=== PATIENT | male | born 1945 | race Caucasian/White ===

== ENCOUNTER → 2016-11-05 | Outpatient (CLI) | payer MEDICARE ==
[2016-11-05 18:59] LABS: ALT 32 U/L (21-72); AST 29 U/L (17-59); Alkaline Phosphatase 57 U/L (38-126); Anion Gap 11 mmol/L; Blood Urea Nitrogen 13 mg/dL (9-20); Calcium 9.7 mg/dL (8.4-10.2); Carbon Dioxide 23 mmol/L (22-30); Chloride 107 mmol/L (98-107); Cholesterol 153 mg/dL (<200); Glucose 93 mg/dL (74-99); HDL Cholesterol 56 mg/dL (40-60); Non-African American GFR(MDRD) >60 (>60 ml/min/1.73 sqM); Potassium 4.3 mmol/L (3.5-5.1); Sodium 141 mmol/L (137-145); Total Protein 7.1 g/dL (6.3-8.2); Triglycerides 122 mg/dL (<150)
[2016-11-05 19:37] LABS: Basophils # (A) 0.1 k/uL (0-0.2); Basophils % (A) 1 %; CH 31.5; CHCM 33.4; Eosinophils # (A) 0.1 k/uL (0-0.7); Eosinophils % (A) 2 %; HCT 51.2 % (39.0-53.0); HDW 2.35; HGB 16.8 gm/dL (13.0-17.5); Luc # (Auto) 0.15; Luc % (Auto) 2; Lymphocytes # (A) 1.5 k/uL (1.0-4.8); Lymphocytes % (A) 22 %; MCH 31.1 pg (25.0-35.0); MCHC 32.9 g/dL (31.0-37.0); MCV 94.6 fL (80.0-100.0); Mean Platelet Volume 7.9; Monocytes # (A) 0.5 k/uL (0-1.0); Monocytes % (A) 7 %; Neutrophils # (A) 4.2 k/uL (1.3-7.7); Neutrophils % (A) 65 %; RBC 5.41 m/uL (4.30-5.90); RDW 13.4 % (11.5-15.5); WBC 6.5 k/uL (3.8-10.6); WBC (Perox) 6.54
== END ==
LOC: MMGSC 15:05
PROVIDERS: ATTEND Family Medicine
DX: Z00.00 Encounter for general adult medical examination without abnormal findings (principal); Z12.5 Encounter for screening for malignant neoplasm of prostate
CPT/HCPCS: 84439; 80061; 80053; 84443; 85025; 36415; G0103

== ENCOUNTER 2024-10-26 03:51 | Inpatient (IN) | payer MEDICARE, OTHER ==
--- NOTE | 2024-10-26 04:14 | ED ---
Chest Pain HPI - General Chief Complaint: Chest Pain Stated Complaint: Chest pain Time Seen by Provider: 10/26/24 04:00 Source: patient Mode of arrival: ambulatory Limitations: no limitations - History of Present Illness Initial Comments: This patient is a 78-year-old man who presents to have evaluation for chest pain that he states woke him up about an hour ago. Patient states he has history of hypertension. He is not aware of history of heart disease. He states that he had heart catheterization approximately 30 years ago. Denies current smoking MD Complaint: chest pain Onset/Timin -: hour(s) Onset: awoke with symptoms Pain Location: substernal Pain Radiation: neck Severity: moderate Quality: heaviness Consistency: constant Improves With: nothing Worsens With: nothing Treatments Prior to Arrival: none - Related Data Home Medications Medication Instructions Recorded Confirmed Aspirin 81 mg PO HS 10/04/15 10/05/15 Tamsulosin [Flomax] 0.8 mg PO HS 10/04/15 10/05/15 lisinopriL [Zestril] 2.5 mg PO HS 10/04/15 10/05/15 Glucosam/Herb-Msm1/C/Adam/Bosw 1 tab PO HS 10/05/15 10/05/15 [Glucosamine-Chondroitin Tablet] Allergies Allergy/AdvReac Type Severity Reaction Status Date / Time pregabalin Allergy Unknown Verified 10/26/24 03:56 Review of Systems ROS Statement: Those systems with pertinent positive or pertinent negative responses have been documented in the HPI. ROS Other: All systems not noted in ROS Statement are negative. Constitutional: Denies: fever, chills Respiratory: Denies: cough, dyspnea Cardiovascular: Reports: chest pain. Denies: palpitations, edema, syncope Gastrointestinal: Denies: abdominal pain, nausea, vomiting Genitourinary: Denies: dysuria, hematuria Musculoskeletal: Denies: back pain Skin: Denies: rash Neurological: Denies: headache, weakness EKG Findings - EKG Results: EKG: interpreted by RADHA, sinus rhythm (Rate 68 bpm), normal axis - Blocks, Tillson, Hypertrophy, ST Abn: QRS axis and voltage: low voltage (<0.5 MV total QRS and <1.0 MV in each precordial lead) - SD, Pacemaker, Normal: Myocardial infarction: inferior SD (old age indeterminate), anterior SD (old age or indeterminate) Past Medical History Past Medical History: Hypertension, Prostate Disorder Additional Past Medical History / Comment(s): knee pain, History of Any Multi-Drug Resistant Organisms: None Reported Past Surgical History: Heart Catheterization, Orthopedic Surgery Additional Past Surgical History / Comment(s): right knee replacement, surgery right elbow, left shoulder surgery, back surgery Past Anesthesia/Blood Transfusion Reactions: No Reported Reaction Past Psychological History: No Psychological Hx Reported Smoking Status: Never smoker Past Alcohol Use History: None Reported Past Drug Use History: None Reported - Past Family History Mother Additional Family Medical History / Comment(s): heart bypass surgery General Exam Limitations: no limitations General appearance: alert, in no apparent distress Head exam: Present: atraumatic, normocephalic Eye exam: Present: normal appearance. Absent: scleral icterus, conjunctival injection ENT exam: Present: normal oropharynx Neck exam: Present: normal inspection Respiratory exam: Present: normal lung sounds bilaterally. Absent: respiratory distress, wheezes, rales, rhonchi, stridor, chest wall tenderness, accessory muscle use Cardiovascular Exam: Present: regular rate, normal rhythm, normal heart sounds. Absent: systolic murmur, diastolic murmur, rubs, gallop GI/Abdominal exam: Present: soft. Absent: distended, tenderness, guarding, rebound, rigid, mass Extremities exam: Present: normal inspection, normal capillary refill. Absent: pedal edema, calf tenderness Back exam: Present: normal inspection. Absent: CVA tenderness (R), CVA tenderness (L) Neurological exam: Present: alert Skin exam: Present: warm, dry, intact, normal color. Absent: rash Course Vital Signs 10/26/24 10/26/24 10/26/24 03:53 04:25 05:01 Temperature 97.3 F L Pulse Rate 73 61 58 L Respiratory 18 18 18 Rate Blood Pressure 147/89 122/86 131/84 O2 Sat by Pulse 99 97 97 Oximetry 10/26/24 10/26/24 10/26/24 05:05 05:10 05:15 Temperature Pulse Rate 58 L 56 L 60 Respiratory 18 18 18 Rate Blood Pressure 122/86 122/81 117/78 O2 Sat by Pulse 97 97 95 Oximetry 10/26/24 10/26/24 10/26/24 05:21 05:30 06:00 Temperature Pulse Rate 54 L 60 56 L Respiratory 18 18 18 Rate Blood Pressure 114/77 91/58 103/64 O2 Sat by Pulse 95 96 91 L Oximetry 10/26/24 06:17 Temperature Pulse Rate Respiratory Rate Blood Pressure O2 Sat by Pulse 96 Oximetry Chest Pain MDM - MDM This patient is a 78-year-old man presenting to the emergency department with pain of 1 hour duration. The patient's ECG does appear to show some ST elevat ions in the anterior leads however the patient does have fully developed Q waves. The patient's last ECG unfortunately is from 2016 so no recent available for comparison. The case discussed with cardiology and their treatment recommendations incorporated. They suspect patient will go for [employer] first thing in the morning. The patient has had some improvement but does have some residual chest pain. The patient had chest x-ray that interpreted as showing cardiomegaly. No acute infiltrate or pneumothorax. Disposition Clinical Impression: Acute coronary syndrome Disposition: ADMITTED IP TO THIS HOSP Condition: Fair Is patient prescribed a controlled substance at d/c from ED?: No
[2024-10-26] MEDS: ASPIRIN 81 MG PO STA (04:16)
[2024-10-26] MEDS: NITROGLYCERIN SL TABS 0.4 MG TAB SUBLINGUAL STA (04:17)
[2024-10-26] MEDS: MORPHINE SULFATE 4 MG/ML SYRINGE IV STA (04:17)
[2024-10-26 04:25] LABS: Basophils # (A) 0.09 10*3/uL (0.00-0.10); Basophils % (A) 1.1 %; Eosinophils # (A) 0.21 10*3/uL (0.04-0.35); Eosinophils % (A) 2.5 %; HCT 48.7 % (39.6-50.0); HGB 16.9 g/dL (13.0-17.0); Lymphocytes # (A) 2.01 10*3/uL (0.90-5.00); MCH 31.9 pg (27.0-32.0); MCHC 34.7 g/dL (32.0-37.0); MCV 92.1 fL (80.0-97.0); Mean Platelet Volume 10.1 fL (9.5-12.2); Monocytes # (A) 0.95 10*3/uL (0.20-1.00); Monocytes % (A) 11.4 %; Neutrophils # (A) 5.09 10*3/uL (1.80-7.70); Neutrophils % (A) 60.8 %; Platelet Count 214 10*3/uL (140-440); RBC 5.29 10*6/uL (4.40-5.60); RDW 12.8 % (11.5-14.5); WBC 8.37 10*3/uL (4.50-10.00)
[2024-10-26] MEDS ORDERED: HEPARIN SODIUM 1,000 UN/ML (10ML VL) IV PRN (04:27)
[2024-10-26] MEDS: ATORVASTATIN 80 MG TAB PO STA ×2 (04:31→09:10)
[2024-10-26] MEDS: HEPARIN SODIUM 1,000 UN/ML (10ML VL) IV ONE (04:33)
[2024-10-26] MEDS: HEPARIN SOD,PORK IN 0.45% NACL 25,000 UNIT in 0.45% NACL 1 250ML.BAG IV SCH (04:36)
[2024-10-26 04:42] LABS: ALT 20 U/L (4-49); AST 31 U/L (17-59); African American GFR (CKD) 64 (>60 ml/min/1.73 sqM); Albumin 4.1 g/dL (3.5-5.0); Alkaline Phosphatase 78 U/L (38-126); Anion Gap 10 mmol/L; Blood Urea Nitrogen 22 mg/dL (9-20); Calcium 9.6 mg/dL (8.4-10.2); Carbon Dioxide 24 mmol/L (22-30); Chloride 105 mmol/L (98-107); Glucose 113 mg/dL (74-99); Magnesium 1.9 mg/dL (1.6-2.3); Non-African American GFR(CKD) 55 (>60 ml/min/1.73 sqM); Potassium 4.1 mmol/L (3.5-5.1); Sodium 139 mmol/L (137-145); Total Bilirubin 0.8 mg/dL (0.2-1.3); Total Protein 6.8 g/dL (6.3-8.2)
[2024-10-26 04:50] LABS: Partial Thromboplastin Time 24.5 sec (22.0-30.0); Prothrombin Time 10.9 sec (10.0-12.5)
[2024-10-26] MEDS: NITROGLYCERIN-D5W PMX 50 MG in DEXTROSE/WATER 1 250ML.BAG IV ONE (04:54)
[2024-10-26] MEDS: METOPROLOL TARTRATE 25 MG TAB PO STA (05:00)
--- NOTE | 2024-10-26 05:31 | XR ---
EXAM: XR Chest, 1 View CLINICAL HISTORY: ITS.REASON XR Reason: chest pain TECHNIQUE: Frontal view of the chest. COMPARISON: X-ray dated 10/04/2015. FINDINGS: Lungs: Opacification of the left lung base. The lungs are mildly hypoinflated. Pleural space: Unremarkable. No pneumothorax. Heart: Unremarkable. No cardiomegaly. Mediastinum: Unremarkable. Normal mediastinal contour. Bones/joints: Degenerative changes are seen within the spine. No acute fracture. IMPRESSION: Vascular crowding versus left lower lobe pneumonia.
[2024-10-26] MEDS ORDERED: NITROGLYCERIN SL TABS 0.4 MG TAB SUBLINGUAL PRN ×2 (06:16→08:07)
[2024-10-26] MEDS ORDERED: ALPRAZolam 0.5 MG TAB PO PRN (08:07)
[2024-10-26] MEDS ORDERED: ALPRAZolam 0.25 MG TAB PO PRN (08:07)
[2024-10-26] MEDS: METOPROLOL SUCCINATE (ER) 25 MG TAB.ER.24H PO SCH (08:09)
[2024-10-26] MEDS: ASPIRIN 81 MG PO SCH (08:47)
[2024-10-26] MEDS: ASPIRIN 325 MG TAB PO STA (08:58)
[2024-10-26] MEDS: TAMSULOSIN 0.4 MG CAP.ER.24H PO SCH (09:10)
[2024-10-26] MEDS: LEVOTHYROXINE 125 MCG TAB PO SCH (09:10)
[2024-10-26] MEDS: SODIUM CHLORIDE 0.9% 1,000 ML IV SCH (09:11)
--- NOTE | 2024-10-26 10:34 | CA ---
Transthoracic Echo Report Name: Dexter Young Age: 78 Gender: M : 1945 Exam Date: 10/26/2024 08:46 Exam Location: [facility] Ht (in): 71 Wt (lb): 195 Ordering Physician: Fernanda Reyes Attending/Referring Phys: [id number], Eric Estimator Project Manager Oumou Marcos RDCS Procedure CPT: Indications: nstemi Cardiac Hx: Technical Quality: Fair Contrast 1: Total Dose (mL): Contrast 2: Total Dose (mL): MEASUREMENTS (Male / Female) Normal Values 2D ECHO LV Diastolic Diameter PLAX 5.5 cm 4.2 - 5.9 / 3.9 - 5.3 cm LV Systolic Diameter PLAX 4.2 cm IVS Diastolic Thickness 1.1 cm 0.6 - 1.0 / 0.6 - 0.9 cm LVPW Diastolic Thickness 0.9 cm 0.6 - 1.0 / 0.6 - 0.9 cm LV Relative Wall Thickness 0.4 RV Internal Dim ED PLAX 2.3 cm LA Systolic Diameter LX 3.4 cm 3.0 - 4.0 / 2.7 - 3.8 cm LV Diastolic Volume MOD BP 104.8 cm??? 67 - 155 / 56 - 104 cm??? LV Systolic Volume MOD BP 61.7 cm??? - 58 / 19 - 49 cm??? LV Ejection Fraction MOD BP 41.2 % >= 55 % LV Cardiac Index MOD BP 1221.6 cm???/min???m??? LV Diastolic Volume MOD 4C 107.8 cm??? LV Systolic Volume MOD 4C 63.4 cm??? LV Ejection Fraction MOD 4C 41.2 % LV Cardiac Index MOD 4C 1257.1 cm???/min???m??? LV Diastolic Length 4C 8.0 cm LV Systolic Length 4C 7.6 cm LV Diastolic Volume MOD 2C 100.2 cm??? LV Systolic Volume MOD 2C 57.3 cm??? LV Ejection Fraction MOD 2C 42.9 % LV Cardiac Index MOD 2C 1216.5 cm???/min???m??? LV Diastolic Length 2C 8.1 cm LV Systolic Length 2C 7.2 cm LA Volume 61.2 cm??? 18 - 58 / 22 - 52 cm??? LA Volume Index 28.9 cm???/m??? 16 - 28 cm???/m??? M-MODE Aortic Root Diameter MM 3.2 cm LA Systolic Diameter MM 3.9 cm LA Ao Ratio MM 1.2 AV Cusp Separation MM 1.9 cm DOPPLER AI Peak Velocity 199.3 cm/s AI Peak Gradient 15.9 mmHg AI Pressure Half Time 606.1 ms MV Area PHT 2.7 cm??? Mitral E Point Velocity 50.2 cm/s Mitral A Point Velocity 91.9 cm/s Mitral E to A Ratio 0.5 MV Deceleration Time 284.4 ms TR Peak Velocity 202.9 cm/s TR Peak Gradient 16.5 mmHg FINDINGS Left Ventricle Left ventricular ejection fraction is estimated at 40 %. Mildly increased septal wall thickness. Mildly increased left ventricular systolic volume. Hypokinetic septum. There is hypokinesia of the mid to distal septum and adjoining anteroapical wall Right Ventricle Normal right ventricular size and function. Right ventricular systolic pressure within normal limits. Right Atrium Mild right atrial dilatation. Left Atrium Mildly increased left atrial volume. Mildly increased left atrial area. Mitral Valve Structurally normal mitral valve. Mild mitral regurgitation. No mitral stenosis. Aortic Valve Aortic valve not well visualized. No aortic stenosis. Trace aortic regurgitation. Tricuspid Valve Structurally normal tricuspid valve. Mild tricuspid regurgitation. No tricuspid stenosis. Pulmonic Valve Structurally normal pulmonic valve. Trace pulmonic regurgitation. No pulmonic stenosis. Pericardium No pericardial or pleural effusion. Aorta Normal size aortic root and proximal ascending aorta. CONCLUSIONS Normal LV size with hypokinesia of the mid to distal septum and adjoining anteroapical wall ejection fraction of about 40%. Mild mitral and tricuspid regurgitation no pulmonary hypertension no pericardial effusion Previewed by: Dr. Kelly Cortes MD (Electronically Signed) Final Date: 26 Oct 2024 10:33
[2024-10-26] MEDS: HEPARIN SODIUM,PORCINE (1 ML) 2,500 UNIT in SODIUM CHLORIDE 0.9% 250 ML IRRIGATION ONE (11:02)
[2024-10-26] MEDS: MIDAZOLAM 2 MG/2 ML VIAL IVP ONE (11:02)
[2024-10-26] MEDS: LIDOCAINE 1% INJ 10MG/ML (20 ML MDV) SQ ONE (11:02)
[2024-10-26] MEDS: HEPARIN SODIUM (1,000 UNIT/ML) 1,000 UNIT in SODIUM CHLORIDE 0.9% 1,000 ML IRRIGATION ONE (11:02)
[2024-10-26] MEDS: IV FLUID CONTINUATION 1,000 ML IV ONE (11:02)
[2024-10-26] MEDS: VERAPAMIL SYRINGE (5 MG/10 ML) INTRAARTER ONE (11:12)
[2024-10-26] MEDS: HEPARIN SODIUM 1,000 UN/ML (10ML VL) IVP ONE (11:14)
[2024-10-26] MEDS: PHENYLEPHRINE-0.9% NACL SYG 1,000 MCG/10 ML SYRINGE IVP ONE (11:16)
[2024-10-26] MEDS: NOREPINEPHRINE 4 MG in SODIUM CHLORIDE 0.9% 250 ML IV ONE (11:27)
[2024-10-26] MEDS: TICAGRELOR 90 MG TAB PO ONE (11:30)
[2024-10-26] MEDS: IOPAMIDOL-370 100ML BTL INJ ONE ×2 (11:32→12:07)
[2024-10-26] MEDS: TIROFIBAN 12.5MG-250ML NS 250 ML IV ONE (11:37)
[2024-10-26] MEDS: niCARdipine Syringe (1,000 mcg/10 mL) INTRAARTER ONE (11:48)
--- NOTE | 2024-10-26 11:52 | P.CRDCN ---
History of Present Illness Consult date: 10/26/24 Reason for Consult (text): Acute coronary syndrome History of present illness: This is a 78-year-old male follows with the [facility] in [place] for cardiology. He patient gives history that he had previously been seen by Dr. Cortes and had a cardiac cath done 30 years ago and was told he had a partial blockage in 1 artery. He has a past medical history of hypertension, thyroid cancer stage IV, borderline diabetes, BPH. We have been asked to evaluate the patient for acute coronary syndrome. Patient gives history that he was recently started on metoprolol after his forest officer at [facility] did a EKG. He has not had a stress test or cardiac cath done by [facility]. Patient came into the hospital due to shortness of breath specially when he is lifting something or going up a few stairs for the past 2 to 3 weeks. He denies true chest pain but has tightness in his chest. He also has some nausea. He complains of some headache now secondary to nitrog lycerin. Usually, patient is able to do 2 flights of stairs without getting short of breath. He also mowed the lawn yesterday and the day before was able to ride his bike for 11 miles. Patient has been started on heparin drip and nitroglycerin drip. Blood pressure 92/58, heart rate 61, pulse ox 98% on 2 L nasal cannula. Patient is seen today in the emergency center waiting for a bed on the cardiac stepdown unit. Dr. Hassan discussed in detail the findings and recommendations for cardiac catheterization with the patient, his and other family members. Patient is agreeable to move forward with this today. -EKG: Q wave in the anterior precordial leads subtle changes with old anterior WA -Chest x-ray: Vascular crowding versus left lower lobe pneumonia. -Laboratory studies: CBC and D-dimer normal. BUN 22 creatinine 1.25, blood sugar 113. Troponin 0.012 and 0.506. -Home cardiac medications: Aspirin 81 mg daily, metoprolol succinate 12.5 mg daily, also on fish oil and levothyroxine. -Echocardiogram on this admission reveals EF 40%, mild mitral and tricuspid regurgitation. No pulmonary hypertension. No pericardial effusion. Review Of Systems: At the time of my exam: CONSTITUTIONAL: Denies fever or chills. HEENT: Denies blurred vision, vision changes, or eye pain. Denies hemoptysis CARDIOVASCULAR: Denies chest pain. Denies orthopnea. Denies PND. Denies palpitations RESPIRATORY: Denies shortness of breath. GASTROINTESTINAL: Denies abdominal pain. Denies nausea or vomiting. HEMATOLOGIC: Denies bleeding disorders. GENITOURINARY: Denies any blood in urine. SKIN: Denies puritis. Denies rash. Physical examination: Gen: This is a 78-year-old male in no acute distress. VS: reviewed HEENT: Head is atraumatic, normocephalic. Pupils equal, round. Sclerae is anicteric. NECK: Supple. No JVD. LUNGS: Clear to auscultation. No wheezes or rhonchi. No intercostal retra ctions. HEART: Regular rate and rhythm. No murmur. ABDOMEN: Soft No tenderness. EXTREMITIES: No pedal edema. No calf tenderness. NEUROLOGICAL: Patient is awake, alert and oriented x3. Assessment: Postinfarction angina NSTEMI Cardiomyopathy, new with EF 40%, most likely ischemic History of coronary artery disease Hypertension Borderline diabetes History of thyroid cancer BPH Plan: Resume patient's home cardiac medications Continue heparin drip Continue nitroglycerin drip Start patient on a atorvastatin 80 mg daily Patient will be scheduled for cardiac catheterization today with Dr. Cortes. Further recommendations to follow based upon clinical course Thank you kindly for this consultation. Nurse practitioner note has been reviewed, I agree with documented findings and plan of care. Patient was seen and examined. Past Medical History Past Medical History: Hypertension, Prostate Disorder Additional Past Medical History / Comment(s): knee pain, History of Any Multi-Drug Resistant Organisms: None Reported Past Surgical History: Heart Catheterization, Orthopedic Surgery Additional Past Surgical History / Comment(s): right knee replacement, surgery right elbow, left shoulder surgery, back surgery Past Anesthesia/Blood Transfusion Reactions: No Reported Reaction Past Psychological History: No Psychological Hx Reported Smoking Status: Never smoker Past Alcohol Use History: None Reported Past Drug Use History: None Reported - Past Family History Mother Additional Family Medical History / Comment(s): heart bypass surgery Medications and Allergies Home Medications Medication Instructions Recorded Confirmed Type Aspirin 81 mg PO DAILY 10/04/15 10/26/24 History Tamsulosin [Flomax] 0.4 mg PO BID 10/04/15 10/26/24 History Cholecalciferol (Vitamin D3) 50 mcg PO BID 10/26/24 10/26/24 History [Vitamin D3 (50 Mcg = 2000 Iu)] Fish Oil/Dha/Epa [Fish Oil 1,200 1 cap PO HS 10/26/24 10/26/24 History mg Fish Oil] Levothyroxine Sodium [Synthroid] 125 mcg PO DAILY 10/26/24 10/26/24 History Metoprolol Succinate (ER) [Toprol 12.5 mg PO DAILY 10/26/24 10/26/24 History Xl] Allergies Allergy/AdvReac Type Severity Reaction Status Date / Time pregabalin Allergy Unknown Verified 10/26/24 07:20 Physical Exam Vitals: Vital Signs Temp Pulse Resp BP Pulse Ox 10/26/24 07:30 57 L 18 101/67 95 10/26/24 06:17 96 10/26/24 06:00 56 L 18 103/64 91 L 10/26/24 05:30 60 18 91/58 96 10/26/24 05:21 54 L 18 114/77 95 10/26/24 05:15 60 18 117/78 95 10/26/24 05:10 56 L 18 122/81 97 10/26/24 05:05 58 L 18 122/86 97 10/26/24 05:01 58 L 18 131/84 97 10/26/24 04:25 61 18 122/86 97 10/26/24 03:53 97.3 F L 73 18 147/89 99 Intake and Output 10/25/24 10/26/24 10/26/24 22:59 06:59 14:59 Intake Total 2.500 Balance 2.500 Intake: Intake, IV Titration 2.500 Amount Nitroglycerin-D5w Pmx 50 2.500 mg In Dextrose/Water 1 250ml.bag @ 10 MCG/MIN 3 mls/hr IV .Q24H ONE Rx#: [id number] Other: Weight 88.451 kg Results 10/26/24 04:04 10/26/24 04:04 Cardiac Enzymes 10/26/24 10/26/24 10/26/24 Range/Units 04:04 04:04 07:07 AST 31 (17-59) U/L Troponin I <0.012 0.506 H* (0.000-0.034) ng/mL Coagulation 10/26/24 Range/Units 04:04 PT 10.9 (10.0-12.5) sec APTT 24.5 (22.0-30.0) sec CBC 10/26/24 Range/Units 04:04 WBC 8.37 (4.50-10.00) 10*3/uL RBC 5.29 (4.40-5.60) 10*6/uL Hgb 16.9 (13.0-17.0) g/dL Hct 48.7 (39.6-50.0) % Plt Count 214 (140-440) 10*3/uL Comprehensive Metabolic Panel 10/26/24 Range/Units 04:04 Sodium 139 (137-145) mmol/L Potassium 4.1 (3.5-5.1) mmol/L Chloride 105 (98-107) mmol/L Carbon Dioxide 24 (22-30) mmol/L BUN 22 H (9-20) mg/dL Creatinine 1.25 (0.66-1.25) mg/dL Glucose 113 H (74-99) mg/dL Calcium 9.6 (8.4-10.2) mg/dL AST 31 (17-59) U/L ALT 20 (4-49) U/L Alkaline Phosphatase 78 (38-126) U/L Total Protein 6.8 (6.3-8.2) g/dL Albumin 4.1 (3.5-5.0) g/dL Current Medications Generic Name Dose Route Start Last Admin Trade Name Freq PRN Reason Stop Dose Admin Aspirin 81 mg 10/26/24 09:00 Aspirin 81 Mg PO DAILY [facility] Heparin Sodium (Porcine) 0 unit 10/26/24 04:27 Heparin Sodium 1,000 Un/Ml (10ml Vl) IV PER PROTOCOL PRN Low PTT Protocol Heparin Sodium/Sodium Chloride 250 mls @ 9.995 mls/hr 10/26/24 04:30 10/26/24 04:36 25,000 unit/ Sodium Chloride IV 11.3 units/kg/hr .Q24H ANGIE 9.995 mls/hr Administration Protocol 11.3 UNITS/KG/HR Nitroglycerin/Dextrose 50 mg/ 250 mls @ 3 mls/hr 10/26/24 04:41 10/26/24 05:22 IV Solution IV 10/27/24 04:40 30 mcg/min .Q24H ONE 9 mls/hr Titration Protocol 10 MCG/MIN Levothyroxine Sodium 125 mcg 10/26/24 08:00 Levothyroxine 125 Mcg Tab PO DIRECTED ANGIE Nitroglycerin 0.4 mg 10/26/24 06:16 Nitroglycerin Sl Tabs 0.4 Mg Tab SUBLINGUAL Q5M PRN Chest Pain Tamsulosin HCl 0.4 mg 10/26/24 08:00 Tamsulosin 0.4 Mg Cap.Er.24h PO DIRECTED ANGIE Intake and Output 10/25/24 10/26/24 10/26/24 22:59 06:59 14:59 Intake Total 2.500 Balance 2.500 Intake: Intake, IV Titration 2.500 Amount Nitroglycerin-D5w Pmx 50 2.500 mg In Dextrose/Water 1 250ml.bag @ 10 MCG/MIN 3 mls/hr IV .Q24H ONE Rx#: [id number] Other: Weight 88.451 kg 10/26/24 04:04 10/26/24 04:04
--- NOTE | 2024-10-26 13:11 | P.HPIM ---
History of Present Illness H&P Date: 10/26/24 Patient is a 78-year-old male with hypertension and thyroid cancer that is in remission presenting with chest pain. Patient states the chest pain occurred at 2:30 AM last night while sleeping. Describes as a constant, intense, substernal pain that radiates to left-sided neck and down both his arms. Admits to associated nausea and vomiting. Denies any aggravating factors. Partially relieved with nitroglycerin. Denies any shortness of breath. States that his mother had a CABG when she was in her 90s. He states he had a heart catheterization around 30 years ago which was normal. Patient is a never smoker, denies alcohol use, denies any illicit drug use. Patient denies any fever, chills, abdominal pain, urinary symptoms. ED documentation reviewed and case discussed with ED provider. Review of systems: Pertinent positives and negatives as discussed in HPI, a complete review of syst ems was performed and all other systems are negative. Physical examination: Vital signs: T97.3 F, SD 73, RR 18, BP 147/89, O2 saturation 99% on room air General: non toxic, no distress, appears at stated age, normal weight Derm: no unusual rashes/lesions, warm Head: atraumatic, normocephalic, symmetric Eyes: EOMI, anicteric sclera, pupils equal round reactive to light ENT: Nose and ears atraumatic Neck: No cervical lymphadenopathy, trachea midline, supple Mouth: no lip lesion, mucus membranes moist Cardiovascular: S1S2 reg, no murmur, positive dorsalis pedis pulse bilateral, no edema Lungs: CTA bilateral, no rhonchi, no rales, no accessory muscle use Abdominal: soft, nontender to palpation, no guarding Ext: muscle strength 5 out of 5 in all 4 extremities grossly, no gross muscle atrophy Neuro: CN II-XI grossly intact, no gross focal neuro deficits Psych: Alert, oriented to person, place, and time Labs: Troponin <0.012, 0.506, 5.530, D-dimer 0.5 Imaging: EKG independently interpreted displaying low voltage, sinus rhythm, rate 72 bpm, no ST changes CXR independent interpreted displaying some pulmonary vascular congestion Echo Doppler displaying normal LV size with hypokinesia of the mid to distal septum and adjoining anteroapical wall ejection fraction of about 40%, mild mitr al and tricuspid regurgitation, no pulmonary hypertension, no pericardial effusion Assessment/Plan: Patient is a 78-year-old male with hypertension presenting with chest pain. #. Type I NSTEMI #. Ischemic cardiomyopathy, EF 40% Continue to trend troponin EKG, CXR, and echo reviewed as above Placed on heparin drip, monitor APTT Aspirin 81 mg p.o. daily Lipitor 80 mg p.o. daily Currently on nitro glycerin drip 10 mcg/min Nitrostat 0.4 mg SL as needed Metoprolol succinate 12.5 mg PO BID Cardiac telemetry Cardiology consulted, plan for heart cath today Chronic: #. Hypothyroidism: Continue Synthroid 125 mcg #. BPH: Continue Flomax 0.4 mg F: Oral hydration E: Replete electrolytes as needed N: N.p.o. A: Ambulatory DVT prophylaxis: IV heparin The patient is admitted with an anticipated greater than 2 midnight stay for evaluation of acute chest pain with suspected NSTEMI. CODE STATUS: Full code Discussed with: Patient Anticipated discharge place: Pending clinical course Geri Marques MD PGY-1 IM Dictation was produced using [employer] dictation software. please excuse any grammatical, word or spelling errors. I have seen and evaluated the patient today. Discussed with the resident and ag ree with the residents finding and plan as documented in the resident's note. Changes highlighted in blue font. Past Medical History Past Medical History: Hypertension, Prostate Disorder Additional Past Medical History / Comment(s): knee pain, History of Any Multi-Drug Resistant Organisms: None Reported Past Surgical History: Heart Catheterization, Orthopedic Surgery Additional Past Surgical History / Comment(s): right knee replacement, surgery right elbow, left shoulder surgery, back surgery Past Anesthesia/Blood Transfusion Reactions: No Reported Reaction Past Psychological History: No Psychological Hx Reported Smoking Status: Never smoker Past Alcohol Use History: None Reported Past Drug Use History: None Reported - Past Family History Mother Additional Family Medical History / Comment(s): heart bypass surgery Medications and Allergies Home Medications Medication Instructions Recorded Confirmed Type Aspirin 81 mg PO DAILY 10/04/15 10/26/24 History Tamsulosin [Flomax] 0.4 mg PO BID 10/04/15 10/26/24 History Cholecalciferol (Vitamin D3) 50 mcg PO BID 10/26/24 10/26/24 History [Vitamin D3 (50 Mcg = 2000 Iu)] Fish Oil/Dha/Epa [Fish Oil 1,200 1 cap PO HS 10/26/24 10/26/24 History mg Fish Oil] Levothyroxine Sodium [Synthroid] 125 mcg PO DAILY 10/26/24 10/26/24 History Metoprolol Succinate (ER) [Toprol 12.5 mg PO DAILY 10/26/24 10/26/24 History Xl] Allergies Allergy/AdvReac Type Severity Reaction Status Date / Time pregabalin Allergy Unknown Verified 10/26/24 07:20 Physical Exam Vitals: Vital Signs Temp Pulse Resp BP Pulse Ox 10/26/24 07:30 57 L 18 101/67 95 10/26/24 06:17 96 10/26/24 06:00 56 L 18 103/64 91 L 10/26/24 05:30 60 18 91/58 96 10/26/24 05:21 54 L 18 114/77 95 10/26/24 05:15 60 18 117/78 95 10/26/24 05:10 56 L 18 122/81 97 10/26/24 05:05 58 L 18 122/86 97 10/26/24 05:01 58 L 18 131/84 97 10/26/24 04:25 61 18 122/86 97 10/26/24 03:53 97.3 F L 73 18 147/89 99 Intake and Output 10/25/24 10/26/24 10/26/24 22:59 06:59 14:59 Intake Total 2.500 Balance 2.500 Intake: Intake, IV Titration 2.500 Amount Nitroglycerin-D5w Pmx 50 2.500 mg In Dextrose/Water 1 250ml.bag @ 10 MCG/MIN 3 mls/hr IV .Q24H ONE Rx#: [id number] Other: Weight 88.451 kg Results CBC & Chem 7: 10/26/24 04:04 10/26/24 04:04 Labs: Abnormal Lab Results - Last 24 Hours (Table) 10/26/24 10/26/24 Range/Units 04:04 07:07 BUN 22 H (9-20) mg/dL Glucose 113 H (74-99) mg/dL Troponin I 0.506 H* (0.000-0.034) ng/mL
--- NOTE | 2024-10-26 13:12 | P.CARDCATH ---
Date of Procedure: 10/26/24 Operative Findings: History: Patient was referred for cardiac catheterization to evaluate for CAD. This is a 78-year-old gentleman with a diagnosis of hypertension and more than 20 years ago he had a cardiac cath which did not reveal significant obstructive CAD per patient. He came into the hospital with chest pain from about 2 AM this morning and also had mild discomfort yesterday. His EKG revealed sinus mechanism with Q waves in anterior leads and prominent T wave elevation suggestive of ischemia in the LAD distribution with elevated troponin. Because of EKG changes and non-ST elevation SD he was advised coronary angiography after being evaluated by Dr. Hassan. I performed his cath more than 20 years ago according to the patient. I also see his in the office. The rationale risk benefits options were carefully explained to the patient and and he was brought to the Quality Improvement Consultant. Procedure: #1 left heart catheterization and coronary angiography. #2 PTCA and stenting of proximal and mid LAD with drug-eluting stents. #3 intravascular ultrasound adjunctive before and after the intervention procedure. Procedure Details: The risks, benefits, complications, treatment options, and expected outcomes were discussed with the patient. The patient and/or family concurred with the proposed plan, giving informed consent. Patient was brought to the orthodontic lab technician after IV hydration was begun and oral premedication was given. Patient was further sedated with midazolam. Patient was prepped and draped in the usual manner. Under strict aseptic precautions and local anesthesia a 6 Urdu introducer was placed in the right radial artery. Using a JL 3/5 and a JR 4/0 catheters I performed coronary angiography and the same JR catheter was used to check LV pressures and LV gram was not performed. After the procedure was completed the sheaths and catheters were all removed. Hemostasis was achieved with TR band. Saturation in the fingers of the right hand was about 97%. Moderate conscious sedation time was [59] minutes. Patient's oxygen saturation hemodynamics and EKG were monitored closely. Findings: Hemodynamics: [Left ventricle end-diastolic pressure was 16 mmHg without any gradient across aortic valve. Patient was slightly hypotensive requiring phenylephrine IV push] Left Main: [Short patent vessel no significant disease bifurcates into LAD and circumflex] LAD: [Good caliber good distribution vessel very proximally the vessel is highly diseased with a long area of narrowing with haziness and thrombus. The narrowing extends into the mid LAD and it gives off a septal and diagonal branch and runs all the way to the apex but the vessel is totally occluded at about two thirds in the anterior wall with sluggish flow. Subtotal proximal LAD occlusion with thrombus noted] CIRC: [Nondominant minor irregularities no significant disease good caliber large distribution vessel obtuse marginal branch is free of significant disease] RCA: [Dominant vessel no significant disease distally bifurcates into a larger PLV smaller PDA no significant disease] LV: [Not performed] Closure Device: [TR band] Complications: [None] Estimated Blood Loss: Minimal Impression: [Right dominant system elevated filling pressures no gradient no significant disease in the dominant RCA or the nondominant circumflex. LAD has a subtotal occlusion in the midportion with a diseased segment that start from the proximal LAD extends to the mid LAD with sluggish flow and total occlusion at the junction of middle and distal one third. LAD is the culprit vessel] Pre Procedure Diagnosis: [Non ST elevation SD with anterior wall ischemia] Final Post Procedure Diagnosis: [Non-ST elevation SD with anterior wall ischemia and total occlusion of mid LAD] Recommendation: [PCI of LAD that was performed in the same setting.] PCI procedure details: I used a JL 3.5 guide catheter and a run-through wire wire was Distally. I performed predilatation with a 3.0 caliber 20 mm long trek balloon. I then started the patient on Aggrastat bolus and drip. He received about 3500 units of heparin and ACT was about 277. After the Aggrastat bolus and at the end of the procedure ACT was 231. Patient received 180 mg of Brilinta and he will be on aspirin and Brilinta without interruption for 1 year. I used a run-through wire to cross the lesion. Predilatation was performed with a 20 mm long trek balloon. I then performed intravascular ultrasound and noted that the mid LAD and proximal LAD was about 4.0 mm. I deployed a 23 mm long 4.0 caliber Xience stent and noted that the stent was shorter. I then deployed an additional 15 mm long Xience stent a 4.0 caliber and telescoped this into the previous stent. I then performed intravascular ultrasound noted that the distal stent was not fully expanded with good apposition but the proximal stent reference diameter seem to be somewhat suboptimal therefore I went back and did a 4.5 NC trek balloon dilatation of the entire stented segment. I performed repeat intravascular ultrasound and noted that the stent was fully expanded well opposed at with excellent result from a angiographic as well as ultrasound point of view. Patient therefore received 2-4.0 stents in the entire segment that was stented was dilated with a 4.5 caliber NC trek balloon. Results were discussed with the patient and his and other family members. He will be hopefully discharged in 48 to 72 hours. I used transiently 1 to 2 mcg of Levophed drip but at the end of the procedure the drip was discontinued and patient's blood pressure was about 115/70 Complications: None; patient tolerated the procedure well. Disposition: Pacu - hemodynamically stable. Condition: Stable Discharge Disposition: Discharge patient if stable in 48 to 72 hours..
[2024-10-26] MEDS: METOPROLOL TARTRATE 12.5 MG TAB PO SCH (19:35)
[2024-10-26] MEDS: LOSARTAN 25 MG TAB PO SCH (19:35)
[2024-10-27 06:13] LABS: Basophils # (A) 0.04 10*3/uL (0.00-0.10); Basophils % (A) 0.4 %; Eosinophils # (A) 0.15 10*3/uL (0.04-0.35); Eosinophils % (A) 1.6 %; HCT 40.7 % (39.6-50.0); Lymphocytes # (A) 1.84 10*3/uL (0.90-5.00); Lymphocytes % (A) 19.2 %; MCH 31.8 pg (27.0-32.0); MCHC 34.4 g/dL (32.0-37.0); MCV 92.5 fL (80.0-97.0); Mean Platelet Volume 10.2 fL (9.5-12.2); Monocytes # (A) 1.08 10*3/uL (0.20-1.00); Monocytes % (A) 11.3 %; Neutrophils # (A) 6.43 10*3/uL (1.80-7.70); Neutrophils % (A) 67.1 %; Platelet Count 184 10*3/uL (140-440); WBC 9.58 10*3/uL (4.50-10.00)
[2024-10-27 06:31] LABS: African American GFR (CKD) 69 (>60 ml/min/1.73 sqM); Anion Gap 6 mmol/L; Blood Urea Nitrogen 14 mg/dL (9-20); Carbon Dioxide 24 mmol/L (22-30); Chloride 106 mmol/L (98-107); Glucose 104 mg/dL (74-99); Non-African American GFR(CKD) 59 (>60 ml/min/1.73 sqM); Potassium 3.8 mmol/L (3.5-5.1); Prothrombin Time 11.4 sec (10.0-12.5); Sodium 136 mmol/L (137-145)
[2024-10-27] MEDS ORDERED: HEPARIN SODIUM,PORCINE 10,000 UNIT in SODIUM CHLORIDE 0.9% 1,000 ML IRRIGATION PRN (07:00)
[2024-10-27] MEDS ORDERED: HEPARIN SODIUM,PORCINE (1 ML) 2,500 UNIT in SODIUM CHLORIDE 0.9% 250 ML IRRIGATION PRN (07:00)
[2024-10-27] MEDS ORDERED: ASPIRIN 325 MG TAB PO SCH (09:00)
[2024-10-27 09:22] VITALS: PULSE 60; RESP 18; TEMP 97.5
[2024-10-27] MEDS: ATORVASTATIN 80 MG TAB PO SCH (09:25)
[2024-10-27] MEDS: TICAGRELOR 90 MG TAB PO SCH (09:26)
--- NOTE | 2024-10-27 10:49 | P.PN ---
Subjective Progress Note Date: 10/27/24 I have seen and evaluated the patient today. Discussed with the resident and agree with the residents finding and plan as documented in the resident's note. Changes highlighted in blue font. Hospital course: Patient is a 78-year-old male with hypertension and thyroid cancer that is in remission presenting with chest pain. Patient states the chest pain occurred at 2:30 AM last night while sleeping. Describes as a constant, intense, substernal pain that radiates to left-sided neck and down both his arms. Admits to associated nausea and vomiting. Denies any aggravating factors. Partially relieved with nitroglycerin. Denies any shortness of breath. States that his mother had a CABG when she was in her 90s. He states he had a heart catheterization around 30 years ago which was normal. Patient is a never smoker, denies alcohol use, denies any illicit drug use. Patient denies any fever, chills, abdominal pain, urinary symptoms. Labs: Troponin <0.012, 0.506, 5.530, D-dimer 0.5 Imaging: EKG independently interpreted displaying low voltage, sinus rhythm, rate 72 bpm, no ST changes CXR independent interpreted displaying some pulmonary vascular congestion Echo Doppler displaying normal LV size with hypokinesia of the mid to distal septum and adjoining anteroapical wall ejection fraction of about 40%, mild mitral and tricuspid regurgitation, no pulmonary hypertension, no pericardial effusion ED documentation was reviewed and case was discussed with ED provider. Patient was for further evaluation of chest pain secondary to NSTEMI. Subjective: Patient seen and examined at bedside. No acute events overnight. Pertinent positives and negatives as discussed above, a complete review of systems was performed and all other systems are negative. Vitals: Signs Reviewed Physical Exam: General: nontoxic, no distress, appears at stated age Derm: warm, dry, intact Head: atraumatic, normocephalic, symmetric Eyes: EOMI, anicteric sclera Mouth: no lip lesion, mucus membranes moist Cardiovascular: S1 S2 reg, no murmur, rubs, or gallops Lungs: CTA bilateral, no rhonchi, no rales, no accessory muscle use Abdominal: soft, non-tender to palpataion, no appreciable organomegaly Extremities: no gross muscle atrophy, no edema, no contractures Neuro: Alert, Oriented, CNII-XII grossly intact, gait normal Psych: well appearing, appropriate affect Data Received Today: Pertinent Labs: CBC and BMP unremarkable A1c 5.7 TSH 0.469 Imaging: N/A Assessment and Plan: Patient is a 78-year-old male with hypertension presenting with chest pain. #. NSTEMI with anterior wall ischemia and total occlusion of mid LAD #. Ischemic cardiomyopathy, EF 40% EKG, CXR, and echo reviewed as above On heparin drip, monitor APTT Aspirin 81 mg p.o. daily Brilinta 90 mg p.o. twice daily Lipitor 80 mg p.o. daily Losartan 12.5 mg p.o. at bedtime Metoprolol succinate 12.5 mg PO BID Nitrostat 0.4 mg SL as needed Cardiac telemetry Cardiac catheterization resulted mid LAD total occlusion with stent placement Cardiology following, pending recommendations Chronic: #. Hypothyroidism: Continue Synthroid 125 mcg #. BPH: Continue Flomax 0.4 mg F: Oral hydration E: Replete electrolytes as needed N: Heart healthy diet A: Ambulatory DVT prophylaxis: IV heparin Code status: Full code Anticipated discharge place: Cardiac rehab, home Anticipated discharge time: 24-48 hours Geri Marques MD PGY-1 IM Dictation was produced using [employer] dictation software. please excuse any grammatical, word or spelling errors. Objective - Vital Signs Vital signs: Vital Signs Temp 98.1 F 10/26/24 23:10 Pulse 57 L 10/27/24 04:15 Resp 12 10/27/24 04:15 BP 110/67 10/27/24 04:15 Pulse Ox 99 10/27/24 04:15 FiO2 Intake & Output 10/26/24 10/26/24 10/27/24 06:59 18:59 06:59 Intake Total 2.500 665 240 Balance 2.500 665 240 Weight 88.451 kg 88.451 kg Intake: IV 665 Intake, IV Titration 2.500 Amount Nitroglycerin-D5w Pmx 50 2.500 mg In Dextrose/Water 1 250ml.bag @ 10 MCG/MIN 3 mls/hr IV .Q24H ONE Rx#: [id number] Oral 240 Other: Voiding Method Toilet Toilet # Voids 1 1 - Labs CBC & Chem 7: 10/27/24 05:58 10/27/24 05:58 Labs: Abnormal Lab Results - Last 24 Hours (Table) 10/26/24 10/26/24 10/26/24 Range/Units 07:07 09:41 09:41 Monocytes # (0.20-1.00) 10*3/uL APTT 48.6 H (22.0-30.0) sec Sodium (137-145) mmol/L Glucose (74-99) mg/dL Troponin I 0.506 H* 5.530 H* (0.000-0.034) ng/mL 10/27/24 10/27/24 Range/Units 05:58 05:58 Monocytes # 1.08 H (0.20-1.00) 10*3/uL APTT (22.0-30.0) sec Sodium 136 L (137-145) mmol/L Glucose 104 H (74-99) mg/dL Troponin I (0.000-0.034) ng/mL
--- NOTE | 2024-10-27 11:28 | P.PN ---
Subjective Progress Note Date: 10/27/24 This is a 78-year-old male follows with the [facility] in [place] for cardiology. He patient gives history that he had previously been seen by Dr. Cortes and had a cardiac cath done 30 years ago and was told he had a partial blockage in 1 artery. He has a past medical history of hypertension, thyroid cancer stage IV, borderline diabetes, BPH. We have been asked to evaluate the patient for acute coronary syndrome. Patient gives history that he was recently started on metoprolol after his vaccinator at [facility] did a EKG. He has not had a stress test or cardiac cath done by [facility]. Patient came into the hospital due to shortness of breath specially when he is lifting something or going up a few stairs for the past 2 to 3 weeks. He denies true chest pain but has tightness in his chest. He also has some nausea. He complains of some headache now secondary to nitroglycerin. Usually, patient is able to do 2 flights of stairs without getting short of breath. He also mowed the lawn yesterday and the day before was able to ride his bike for 11 miles. Patient has been started on heparin drip and nitroglycerin drip. Blood pressure 92/58, heart rate 61, pulse ox 98% on 2 L nasal cannula. Patient is seen today in the emergency center waiting for a bed on the cardiac stepdown unit. Dr. Hassan discussed in detail the findings and recommendations for cardiac catheterization with the patient, his and other family members. Patient is agreeable to move forward with this today. -EKG: Q wave in the anterior precordial leads subtle changes with old anterior UT -Chest x-ray: Vascular crowding versus left lower lobe pneumonia. -Laboratory studies: CBC and D-dimer normal. BUN 22 creatinine 1.25, blood sugar 113. Troponin 0.012 and 0.506. -Home cardiac medications: Aspirin 81 mg daily, metoprolol succinate 12.5 mg daily, also on fish oil and levothyroxine. -Echocardiogram on this admission reveals EF 40%, mild mitral and tricuspid regurgitation. No pulmonary hypertension. No pericardial effusion. Progress note 10/28/2023 Patient is seen and examined at bedside this a.m. BP 107/62, heart rate 60 bpm Patient underwent PCI of LAD with Dr. Cortes yesterday. Access that appears intact with no signs of hematoma or bleeding. Labs shows preserved hemoglobin and kidney function. Physical examination: Gen: This is a 78-year-old male in no acute distress. VS: reviewed HEENT: Head is atraumatic, normocephalic. Pupils equal, round. Sclerae is anicteric. NECK: Supple. No JVD. LUNGS: Clear to auscultation. No wheezes or rhonchi. No intercostal retractions. HEART: Regular rate and rhythm. No murmur. ABDOMEN: Soft No tenderness. EXTREMITIES: No pedal edema. No calf tenderness. NEUROLOGICAL: Patient is awake, alert and oriented x3. Assessment: NSTEMI with CAD status post PCI to LAD Cardiomyopathy, new with EF 40%, most likely ischemic History of coronary artery disease Hypertension Borderline diabetes History of thyroid cancer BPH Plan: Aspirin Brilinta statin Losartan 12.5 mg daily, metoprolol succinate 25 mg daily, Farxiga 10 mg daily Patient is cleared to be discharged from cardiovascular standpoint with recommended outpatient follow-up with Dr. Hassan Objective - Vital Signs Vital signs: Vital Signs Temp 97.5 F L 10/27/24 09:21 Pulse 60 10/27/24 09:21 Resp 18 10/27/24 09:21 BP 107/62 10/27/24 09:21 Pulse Ox 99 10/27/24 09:21 FiO2 Intake & Output 10/26/24 10/27/24 10/27/24 18:59 06:59 18:59 Intake Total 665 240 260 Balance 665 240 260 Weight 88.451 kg 90.9 kg Intake: IV 665 20 Invasive Line 1 10 Invasive Line 2 10 Oral 240 240 Other: Voiding Method Toilet Toilet Toilet # Voids 1 1 - Labs CBC & Chem 7: 10/27/24 05:58 10/27/24 05:58 Labs: Abnormal Lab Results - Last 24 Hours (Table) 10/27/24 10/27/24 Range/Units 05:58 05:58 Monocytes # 1.08 H (0.20-1.00) 10*3/uL Sodium 136 L (137-145) mmol/L Glucose 104 H (74-99) mg/dL
[2024-10-27 12:21] VITALS: BP 104/63
--- NOTE | 2024-10-27 14:40 | P.DS ---
Providers Date of admission: 10/26/24 06:19 Attending physician: Hawk Tavera MD Consults: 10/26/24 06:16 Consult Physician Urgent Consulting Provider: Maverick Hassan Consult Reason/Comments: Acute coronary syndrome Do you want consulting provider notified?: Already Contacted Primary care physician: [facility] Hospital Course: Discharge Diagnosis: CAD status post PCI to LAD NSTEMI Ischemic cardiomyopathy EF 40% CAD HTN Hypothyroidism BPH Hospital Course: Hospital course: Patient is a 78-year-old male with hypertension and thyroid cancer that is in remission presenting with chest pain. Patient states the chest pain occurred at 2:30 AM last night while sleeping. Describes as a constant, intense, substernal pain that radiates to left-sided neck and down both his arms. Admits to associated nausea and vomiting. Denies any aggravating factors. Partially relieved with nitroglycerin. Denies any shortness of breath. States that his mother had a CABG when she was in her 90s. He states he had a heart catheterization around 30 years ago which was normal. Patient is a never smoker, denies alcohol use, denies any illicit drug use. Patient denies any fever, chills, abdominal pain, urinary symptoms. EKG independently interpreted displaying low voltage, sinus rhythm, rate 72 bpm, no ST changes CXR independent interpreted displaying some pulmonary vascular congestion Echo Doppler displaying normal LV size with hypokinesia of the mid to distal septum and adjoining anteroapical wall ejection fraction of about 40%, mild mitral and tricuspid regurgitation, no pulmonary hypertension, no pericardial effusion ED documentation was reviewed and case was discussed with ED provider. Patient was for further evaluation of chest pain secondary to NSTEMI. Taken to the Building Maintenance Repairer, LAD total occlusion noted, stent placed, patient was started on aspirin 81 mg p.o. daily, Brilinta 90 mg p.o. twice daily, Lipitor 80 mg p.o. daily, losartan 12.5 mg p.o. at bedtime, metoprolol succinate 25 mg p.o. daily, Farxiga 10 mg daily, cleared to be discharged from cardiovascular standpoint, recommend follow-up with outpatient with Dr. Hassan Patient seen and examined at bedside. No active complaints Vital signs reviewed and stable. General: [nontoxic], [no distress], [appears at stated age] Derm: [warm], [dry] Head: [atraumatic], [normocephalic], [symmetric] Eyes: [EOMI], [no lid lag], [anicteric sclera] Mouth: [no lip lesion], [mucus membranes moist] Cardiovascular: [S1S2 reg], [no murmur] Lungs: [CTA bilateral], [no rhonchi, no rales] , [no accessory muscle use] Abdominal: [soft], [ nontender to palpation], [no guarding], [no appreciable organomegaly] Ext: [no gross muscle atrophy], [no edema], [no contractures] Neuro: [ CN II-XI grossly intact], [no focal neuro deficits] Psych: [Alert], [oriented], [appropriate affect] A total of 40 minutes of time were spent preparing this complex discharge summary. Patient was discharged on 10/27/2024. Patient Condition at Discharge: Fair Plan - Discharge Summary Discharge Rx Participant: No New Discharge Prescriptions: New Losartan [Cozaar] 12.5 mg PO HS #30 tab Dapagliflozin Propanediol [Farxiga] 10 mg PO DAILY #30 tab Atorvastatin [Lipitor] 80 mg PO DAILY #30 tab Nitroglycerin Sl Tabs [Nitrostat] 0.4 mg SUBLINGUAL Q5M PRN #30 tab PRN Reason: Chest Pain Ticagrelor [Brilinta] 90 mg PO BID #60 tab Continue Aspirin 81 mg PO DAILY Tamsulosin [Flomax] 0.4 mg PO BID Cholecalciferol (Vitamin D3) [Vitamin D3 (50 Mcg = 2000 Iu)] 50 mcg PO BID Fish Oil/Dha/Epa [Fish Oil 1,200 mg Fish Oil] 1 cap PO HS Levothyroxine Sodium [Synthroid] 125 mcg PO DAILY Metoprolol Succinate (ER) [Toprol XL] 12.5 mg PO DAILY Discharge Medication List Aspirin 81 mg PO DAILY 10/04/15 [History] Tamsulosin [Flomax] 0.4 mg PO BID 10/04/15 [History] Cholecalciferol (Vitamin D3) [Vitamin D3 (50 Mcg = 2000 Iu)] 50 mcg PO BID 10/26/24 [History] Fish Oil/Dha/Epa [Fish Oil 1,200 mg Fish Oil] 1 cap PO HS 10/26/24 [History] Levothyroxine Sodium [Synthroid] 125 mcg PO DAILY 10/26/24 [History] Metoprolol Succinate (ER) [Toprol XL] 12.5 mg PO DAILY 10/26/24 [History] Atorvastatin [Lipitor] 80 mg PO DAILY #30 tab 10/27/24 [Rx] Dapagliflozin Propanediol [Farxiga] 10 mg PO DAILY #30 tab 10/27/24 [Rx] Losartan [Cozaar] 12.5 mg PO HS #30 tab 10/27/24 [Rx] Nitroglycerin Sl Tabs [Nitrostat] 0.4 mg SUBLINGUAL Q5M PRN #30 tab 10/27/24 [Rx] Ticagrelor [Brilinta] 90 mg PO BID #60 tab 10/27/24 [Rx] Follow up Appointment(s)/Referral(s): Maverick Hassan MD [STAFF PHYSICIAN] - 1 Week Nonstaff,Physician [REFERRING] - 1-2 days Patient Instructions/Handouts: Heart Failure (DC) Activity/Diet/Wound Care/Special Instructions: Please, follow-up with your primary care physician in chemical engineer. Follow low-sodium diet less than 2 g/day, watch your weight and keep a log of the readings, monitor your blood pressure daily, keep a log of the readings to discuss with your PCP and chemical engineer. Take all the medications as prescribed Discharge Disposition: HOME SELF-CARE
[2024-10-27] MEDS: DAPAGLIFLOZIN PROPANEDIOL 10 MG TABLET PO SCH (14:48)
[2024-10-27] MEDS: METOPROLOL SUCCINATE (ER) 25 MG TAB.ER.24H PO SCH (14:48)
[2024-10-28 08:02] LABS: Chol/HDL Ratio 2.76 Ratio; LDL Cholesterol,Calculated 48.8 mg/dL (0.0-131.0); VLDL Calculation 17.54 mg/dL (5.00-40.00)
== END 2024-10-27 16:11 | disposition home or self-care (01) | DRG 322 ==
LOC: EC 03:51 → 3SCARD 06:19
PROVIDERS: ADMIT Internal Medicine; ATTEND Internal Medicine
PROC: B240ZZ3 Ultrasonography of Single Coronary Artery, Intravascular (ICD-10-PCS; 2024-10-26)
PROC: 027034Z Dilation of Coronary Artery, One Artery with Drug-eluting Intraluminal Device, Percutaneous Approach (ICD-10-PCS; principal; 2024-10-26 11:05)
PROC: 4A023N7 Measurement of Cardiac Sampling and Pressure, Left Heart, Percutaneous Approach (ICD-10-PCS; 2024-10-26 11:05)
PROC: B2111ZZ Fluoroscopy of Multiple Coronary Arteries using Low Osmolar Contrast (ICD-10-PCS; 2024-10-26 11:05)
DX: I21.4 Non-ST elevation (NSTEMI) myocardial infarction (principal); I23.7 Postinfarction angina; E11.9 Type 2 diabetes mellitus without complications; E03.9 Hypothyroidism, unspecified; I11.9 Hypertensive heart disease without heart failure; I25.5 Ischemic cardiomyopathy; N40.0 Benign prostatic hyperplasia without lower urinary tract symptoms; I25.118 Atherosclerotic heart disease of native coronary artery with other forms of angina pectoris; R51.9 Headache, unspecified; Z79.82 Long term (current) use of aspirin; Z88.8 Allergy status to other drugs, medicaments and biological substances; I25.2 Old myocardial infarction; Z85.850 Personal history of malignant neoplasm of thyroid; Z79.02 Long term (current) use of antithrombotics/antiplatelets; Z79.890 Hormone replacement therapy; Z79.899 Other long term (current) drug therapy; Z96.651 Presence of right artificial knee joint
CPT/HCPCS: 36415; 71045; 80048; 80053; 80061; 83036; 83735; 84443; 84484; 85025; 85379; 85610; 85730; 92978; 93005; 93306; 93458; 96365; 96366; 96368; 96375; 99285